=== PATIENT | female | born 1975 | race Caucasian/White ===

== ENCOUNTER 2021-04-27 23:38 | Emergency (ER) | payer OTHER | END 2021-04-28 04:36 | disposition home or self-care (01) | LOC: ER1 23:38 | DX: R07.9 Chest pain, unspecified (principal); R51.9 Headache, unspecified; M54.9 Dorsalgia, unspecified; F17.200 Nicotine dependence, unspecified, uncomplicated; Z23 Encounter for immunization; Y04.2XXA Assault by strike against or bumped into by another person, initial encounter | CPT/HCPCS: 70450; 71045; 72125; 72128; 90471; 90715; 99285 ==

== ENCOUNTER 2021-12-22 23:17 | Emergency (ER) | payer OTHER ==
[2021-12-23 00:15] LABS: RED BLOOD COUNT 5.04 M/UL (4.00-5.10); WHITE BLOOD COUNT 10.6 K/UL (4.5-11.0)
[2021-12-23 00:19] LABS: BUN/CREATININE RATIO 17 (0-10)
[2021-12-23] MEDS ORDERED: HYDROCODON-ACE1 EAC4 PO ×5 (05:38→05:52)
== END 2021-12-23 06:55 | disposition home or self-care (01) ==
LOC: ER1 23:17
PROVIDERS: Student in an Organized Health Care Education/Training Program
DX: S22.31XA Fracture of one rib, right side, initial encounter for closed fracture (principal); V49.9XXA Car occupant (driver) (passenger) injured in unspecified traffic accident, initial encounter
CPT/HCPCS: 70450; 71260; 72125; 80053; 85025; 96372; 96374; 99284; J1630; J2405; Q9967